=== PATIENT | female | born 1970 | race Caucasian/White ===

== ENCOUNTER 2023-12-21 09:55 | Emergency (ER) | payer BC ==
[~2023-12-21] VITALS: Ht 172.7 cm; Wt 63.5 kg
[2023-12-21] MEDS ORDERED: Premarin0.3 MG (10:02)
[2023-12-21] MEDS ORDERED: PROG100 (10:02)
[2023-12-21] MEDS ORDERED: Ondansetron HCl 2 MG / ML 2ML Vial IV ONE (10:20)
[2023-12-21] MEDS ORDERED: HYDROmorphone HCl/Pf 1MG SYR IV ONE (10:20)
[2023-12-21] MEDS ORDERED: Diphth,Pertuss(Acell),Tet Vac 0.5 ML VIAL IM ONE (10:35)
[2023-12-21] MEDS ORDERED: NS 1,000 ML IV SCH (11:55)
[2023-12-21] MEDS ORDERED: Propofol 10mg/ml 20 ml Vial (Procedural) IV SCH (11:55)
[2023-12-21] MEDS ORDERED: IBUP800 PO (12:53)
[2023-12-21] MEDS ORDERED: ONDA4ODT MM (12:53)
[2023-12-21] MEDS ORDERED: Percocet 5-3251 EACH PO (12:53)
== END 2023-12-21 14:16 | disposition home or self-care (01) ==
LOC: ER 09:55
DX: S82.61XA Displaced fracture of lateral malleolus of right fibula, initial encounter for closed fracture (principal); X50.1XXA Overexertion from prolonged static or awkward postures, initial encounter; Z79.899 Other long term (current) drug therapy
CPT/HCPCS: 27840; 73610; 90471; 90715; 96361-59; 96374-59; 96375-59; 99152; 99284-25; J1170; J2405; J2704; J7030